=== PATIENT | male | born 2000 | race Caucasian/White ===

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

== ENCOUNTER 2018-02-25 21:35 | Emergency (ER) | payer BC ==
[2018-02-25] MEDS ORDERED: Ondansetron HCl/PF 4 MG/2 ML Vial ONE (21:57)
[2018-02-25 22:09] LABS: #Eosinphils 0.2 thou/uL (0.0-0.7); #Monocytes 0.6 thou/uL (0.11-0.59); #Neutrophils 5.4 thou/uL (1.40-6.50); %Monocytes 6.5 % (0.0-4.0); White Blood Cell (WBC) Count 8.8 thou/uL (4.8-10.8)
[2018-02-25 22:10] LABS: #Basophils 0.2 thou/uL (0.0-0.2); #Lymphocytes 2.5 thou/uL (1.20-3.40); %Basophils 1.8 % (0.0-1.0); %Eosinophils 1.9 % (0.0-10.0); %Lymphocytes 28.7 % (28.0-48.0); %Neutrophils 61.3 % (31.0-61.0); Hemoglobin 13.7 g/dL (14.0-18.0); Mean Corpuscular HGB CONC 35.9 g/dL (32.0-36.0); Mean Corpuscular Volume 94.6 fL (78.0-98.0); Mean Platelet Volume 6.2 fL (7.4-10.4); Platelet Count 214 thou/uL (130-400); RBC Distribution Width 11.4 % (11.5-14.5); Red Blood Cell (RBC) Count 4.02 mill/uL (4.00-5.20)
--- NOTE | 2018-02-25 22:19 | RAD ---
RADIOGRAPH CHEST 1 VIEW: 02/25/18 HISTORY: 17-year-old male with heat exhaustion and syncope. FINDINGS: There are no air space densities, pulmonary edema, pneumothorax, or cardiomegaly. The lateral costop hrenic angles are sharp. IMPRESSION: No acute cardiopulmonary findings. jn [] POS: JIN
[2018-02-25 22:28] LABS: ALT (SGPT) 12 U/L (8-55); AST (SGOT) 15 U/L (10-45); Albumin 3.9 g/dL (3.5-5.0); Alkaline Phosphatase 87 U/L (Less than 750); Anion Gap 16 mmol/L (10-20); BUN (Urea Nitrogen) 13 mg/dL (8.4-21.0); Bilirubin, Total 1.2 mg/dL (0.2-1.2); CK (CPK) 128 U/L (30-200); Calc. Creatinine Clearance 0 mL/min (70-130); Calcium 8.2 mg/dL (7.8-10.44); Carbon Dioxide 22 mmol/L (22-29); Chloride 107 mmol/L (98-107); Estimated GFR-MDRD Greater than 90; Glucose 154 mg/dL (70-105); Potassium 3.5 mmol/L (3.5-5.1); Protein, Total 5.9 g/dL (6.0-8.3); Sodium 141 mmol/L (136-145)
== END 2018-02-25 22:44 | disposition home or self-care (01) ==
LOC: MADERS 21:35
DX: I95.1 Orthostatic hypotension (principal); E86.0 Dehydration; F17.210 Nicotine dependence, cigarettes, uncomplicated
CPT/HCPCS: 36415; 71045; 80053; 82550; 83605; 85025; 93005; 96361; 96374; J2405